=== PATIENT | male | born 1965 | race Caucasian/White ===

== ENCOUNTER 2021-08-20 13:09 | Inpatient (IN) | payer BC ==
--- NOTE | 2021-08-20 13:25 | ED ---
General Adult HPI - General Chief complaint: Recheck/Abnormal Lab/Rx Stated complaint: CHF Time Seen by Provider: 08/20/21 13:10 Source: patient, RN/MD, EMS, RN notes reviewed Mode of arrival: EMS Limitations: no limitations - History of Present Illness Initial comments: 55-year-old male with a benign past medical history who was sent from [facility] for further evaluation treatment of congestive heart failure and a ejection fraction on echocardiogram a temper sent. He had been experiencing exertional dyspnea with some orthopnea over the past several weeks this has been getting worse he denies any chest pain fevers chills nausea vomiting sweats or other symptoms. He was initially treated with Lasix and other medication at that facility and was transferred here for further patient evaluation and treatment.. He currently denies any pain any other symptoms at this time. He is diuresing after the Lasix was administered. Patient does say he's had a small amount of peripheral edema to the lower extremities - Related Data Home Medications Medication Instructions Recorded Confirmed Aspirin EC [Ecotrin Low Dose] 81 mg PO DAILY 08/20/21 08/20/21 Hydrochlorothiazide 12.5 mg PO DAILY 08/20/21 08/20/21 [hydroCHLOROthiazide] Magnesium 200 mg PO DAILY 08/20/21 08/20/21 Allergies Allergy/AdvReac Type Severity Reaction Status Date / Time No Known Allergies Allergy Verified 08/20/21 14:07 Review of Systems ROS Statement: Those systems with pertinent positive or pertinent negative responses have been documented in the HPI. ROS Other: All systems not noted in ROS Statement are negative. Past Medical History Past Medical History: Heart Failure History of Any Multi-Drug Resistant Organisms: None Reported Past Surgical History: Orthopedic Surgery Past Psychological History: No Psychological Hx Reported Smoking Status: Never smoker Past Alcohol Use History: Occasional Past Drug Use History: None Reported General Exam - General Exam Comments Initial Comments: This is a well-developed well-nourished awake alert oriented 3 male Limitations: no limitations General appearance: alert, in no apparent distress Head exam: Present: atraumatic, normocephalic, normal inspection Eye exam: Present: normal appearance, PERRL, EOMI. Absent: scleral icterus, conjunctival injection, periorbital swelling ENT exam: Present: normal exam, mucous membranes moist Neck exam: Present: normal inspection, full ROM, other (7. Bruits). Absent: tenderness, meningismus, lymphadenopathy Respiratory exam: Present: decreased breath sounds. Absent: respiratory distress, wheezes, rales, rhonchi, stridor Cardiovascular Exam: Present: normal rhythm, tachycardia, normal heart sounds. Absent: systolic murmur, diastolic murmur, rubs, gallop, clicks GI/Abdominal exam: Present: soft, normal bowel sounds. Absent: distended, tenderness, guarding, rebound, rigid Extremities exam: Present: normal inspection, full ROM, normal capillary refill. Absent: tenderness, pedal edema, joint swelling, calf tenderness Back exam: Present: normal inspection Neurological exam: Present: alert, oriented X3, CN II-XII intact Psychiatric exam: Present: normal affect, normal mood Skin exam: Present: warm, dry, intact, normal color. Absent: rash Course Vital Signs 08/20/21 08/20/21 13:14 14:54 Temperature 97.7 F 98.1 F Pulse Rate 101 H 92 Respiratory 18 19 Rate Blood Pressure 148/121 139/110 O2 Sat by Pulse 98 97 Oximetry EKG Findings - EKG Results: EKG: interpreted by ERMD, sinus rhythm (Sinus rhythm rate 99. Interval 181 QRS 98 QT since QTC 380/436 nonspecific T-wave configuration this is compared with the EKG sent from the sending facility.) Medical Decision Making - Medical Decision Making I did review the materials presented from the sending facility patient does have evidence of CHF with low ejection fraction on echocardiogram. Patient will be admitted for cardiology consultation I did discuss the case with . Disposition Clinical Impression: CHF (congestive heart failure), Hypertension Disposition: ADMITTED IP TO THIS [facility] Condition: Stable Referrals: Nonstaff,Physician [Primary Care Provider] - 1-2 days
--- NOTE | 2021-08-20 15:26 | P.HPIM ---
History of Present Illness Chief Complaint: Shortness of Patient is a 55-year-old male with no significant past medical history the presence of a hospital complaining shortness of breath. This is probably started 3 weeks ago and has been progressively getting worse. Denies any proximal nocturnal dyspnea does use his arm or extrapleural extremities had times to alleviate some shortness of breath. Patient is unable to ambulate more than a block without getting shortness of breath. He denies any history of coronary disease, congestive heart failure however was diagnosed with essential hypertension in the past but not been taking any medications. He denies any episodes of fever, chills, nausea or vomiting. patient visited his PCP and obtained a 2-D echocardiogram that showed an ejection fraction of 10-15% and was instructed to visit the emergency department. During my examination his vital signs are stable not in any acute distress and is able to have a full conversation. No blood work available in our system however did review his previous records including CBC, BMP, BNP, chest x-ray and echocardiogram. Past Medical History Past Medical History: Heart Failure History of Any Multi-Drug Resistant Organisms: None Reported Past Surgical History: Orthopedic Surgery Past Psychological History: No Psychological Hx Reported Smoking Status: Never smoker Past Alcohol Use History: Occasional Past Drug Use History: None Reported Medications and Allergies Home Medications Medication Instructions Recorded Confirmed Type Aspirin EC [Ecotrin Low Dose] 81 mg PO DAILY 08/20/21 08/20/21 History Hydrochlorothiazide 12.5 mg PO DAILY 08/20/21 08/20/21 History [hydroCHLOROthiazide] Magnesium 200 mg PO DAILY 08/20/21 08/20/21 History Allergies Allergy/AdvReac Type Severity Reaction Status Date / Time No Known Allergies Allergy Verified 08/20/21 14:07 Physical Exam Vitals: Vital Signs Temp Pulse Resp BP Pulse Ox 08/20/21 14:54 98.1 F 92 19 139/110 97 08/20/21 13:14 97.7 F 101 H 18 148/121 98 Intake and Output 08/20/21 08/20/21 08/20/21 06:59 14:59 22:59 Other: Weight 143.789 kg General: Patient is awake alert oriented 3 Cardiology: Normal S1/S2 heard, no murmurs appreciated Respiratory: Bilateral crackles at the bases minimal Abdomen: Soft nontender Extremities: +2 pitting edema Psych: No acute distress Assessment and Plan Assessment: Assessment: #1 new onset congestive heart failure with reduced ejection fraction 10-15%, NYHA class III states he #2 essential hypertension Plan: -Admitted to medicine for close monitoring -Aspiration/fall precaution/hob30 -Low sodium diet, strict input/output, restrict fluid to less than 1.4 L within 24 hours -We'll initiate JAM inhibitor, beta any. Most likely a candidate for sprinolactone as well. -Needs evaluation by cardiology most likely cardiac cath to evaluate for coronary artery disease -We'll need LifeVest prior to discharge -Risk stratified patient with lipid profile, hemoglobin A1c and TSH reflex E4 -Blood pressure goal of less than 130/80 -DVT prophylaxis Lovenox 40 mg daily
[2021-08-20] MEDS ORDERED: FUROSEMIDE 40 MG TAB PO SCH (16:00)
[2021-08-20 16:32] LABS: Basophils # (A) 0.1 k/uL (0-0.2); Basophils % (A) 1 %; Eosinophils # (A) 0.4 k/uL (0-0.7); Eosinophils % (A) 5 %; HGB 15.3 gm/dL (13.0-17.5); Lymphocytes % (A) 21 %; MCH 29.7 pg (25.0-35.0); MCHC 32.6 g/dL (31.0-37.0); Mean Platelet Volume 7.9; Monocytes # (A) 0.4 k/uL (0-1.0); Monocytes % (A) 5 %; Neutrophils # (A) 6.4 k/uL (1.3-7.7); Neutrophils % (A) 69 %; Platelet Count 226 k/uL (150-450); RBC 5.16 m/uL (4.30-5.90); RDW 14.5 % (11.5-15.5); WBC 9.4 k/uL (3.8-10.6)
[2021-08-20] MEDS: HEPARIN SODIUM,PORCINE/PF 5,000 UNIT/0.5 ML SYRINGE SQ SCH ×2 (16:36→23:37)
[2021-08-20 16:40] LABS: African American GFR (CKD) >90 (>60 ml/min/1.73 sqM); Anion Gap 9 mmol/L; Blood Urea Nitrogen 21 mg/dL (9-20); Calcium 8.8 mg/dL (8.4-10.2); Carbon Dioxide 23 mmol/L (22-30); Chloride 104 mmol/L (98-107); Glucose 94 mg/dL (74-99); Non-African American GFR(CKD) 82 (>60 ml/min/1.73 sqM); Phosphorus 3.7 mg/dL (2.5-4.5); Potassium 4.3 mmol/L (3.5-5.1); Sodium 136 mmol/L (137-145)
[2021-08-20 17:20] LABS: Magnesium 2.5 mg/dL (1.6-2.3)
[2021-08-20] MEDS: FUROSEMIDE 10 MG/ML 4 ML VIAL IV SCH (21:36)
[2021-08-21] LABS: Chol/HDL Ratio 4.04 Ratio; LDL Cholesterol,Calculated 102.9 mg/dL (0.0-131.0)
[2021-08-21 08:00] LABS: Basophils # (A) 0.1 k/uL (0-0.2); Basophils % (A) 1 %; Eosinophils # (A) 0.3 k/uL (0-0.7); Eosinophils % (A) 3 %; HCT 47.8 % (39.0-53.0); HGB 15.2 gm/dL (13.0-17.5); Lymphocytes # (A) 1.7 k/uL (1.0-4.8); Lymphocytes % (A) 20 %; MCH 28.8 pg (25.0-35.0); MCHC 31.8 g/dL (31.0-37.0); MCV 90.8 fL (80.0-100.0); Mean Platelet Volume 8.5; Monocytes # (A) 0.4 k/uL (0-1.0); Monocytes % (A) 5 %; Neutrophils # (A) 5.8 k/uL (1.3-7.7); Neutrophils % (A) 70 %; Platelet Count 266 k/uL (150-450); RBC 5.26 m/uL (4.30-5.90); RDW 14.9 % (11.5-15.5); WBC 8.3 k/uL (3.8-10.6)
[2021-08-21 08:13] LABS: African American GFR (CKD) >90 (>60 ml/min/1.73 sqM); Anion Gap 8 mmol/L; Blood Urea Nitrogen 22 mg/dL (9-20); Calcium 8.7 mg/dL (8.4-10.2); Carbon Dioxide 25 mmol/L (22-30); Chloride 102 mmol/L (98-107); Glucose 93 mg/dL (74-99); Magnesium 2.5 mg/dL (1.6-2.3); Non-African American GFR(CKD) 80 (>60 ml/min/1.73 sqM); Sodium 135 mmol/L (137-145)
[2021-08-21 08:30] LABS: Potassium 4.3 mmol/L (3.5-5.1)
[2021-08-21] MEDS: HEPARIN SODIUM,PORCINE/PF 5,000 UNIT/0.5 ML SYRINGE SQ SCH ×3 (08:30→20:11)
[2021-08-21] MEDS: ATORVASTATIN 40 MG TAB PO SCH (08:30)
[2021-08-21] MEDS: ASPIRIN 81 MG PO SCH (08:30)
[2021-08-21] MEDS: FUROSEMIDE 10 MG/ML 4 ML VIAL IV SCH ×2 (08:30→20:11)
[2021-08-21] MEDS: MAGNESIUM OXIDE 400 MG TAB PO SCH (08:30)
[2021-08-21] MEDS ORDERED: hydroCHLOROthiazide 12.5 MG CAP PO SCH (09:00)
[2021-08-21] MEDS ORDERED: carvediloL 3.125 MG TAB PO SCH (09:00)
--- NOTE | 2021-08-21 10:45 | P.PN ---
Subjective Patient was examined at bedside today not complaining of any new symptomatology. He denies any active chest pain, worsening shortness of breath or palpitations. Objective - Vital Signs Vital signs: Vital Signs Temp 97.8 F 08/21/21 04:00 Pulse 67 08/21/21 04:00 Resp 18 08/21/21 04:00 BP 131/89 08/21/21 04:00 Pulse Ox 94 L 08/21/21 04:00 Intake & Output 08/20/21 08/21/21 08/21/21 18:59 06:59 18:59 Intake Total 10 Output Total 800 4325 Balance -800 -4315 Weight 143.789 kg 138.6 kg Intake: IV 10 0.9 10 Output: Urine 800 4325 Other: Voiding Method Toilet Urinal - Exam General: Patient is awake alert oriented 3 Cardiology: Normal S1/S2 heard, no murmurs appreciated Respiratory: No wheezing or rhonchi appreciated. minimal crackles, improving compared to yesterday. Abdomen: Soft nontender Extremities: +2 pitting edema - improving compared to yesterday Psych: No acute distress - Labs CBC & Chem 7: 08/21/21 07:02 08/21/21 07:02 Labs: Abnormal Lab Results - Last 24 Hours (Table) 08/20/21 08/20/21 08/21/21 Range/Units 16:22 16:22 07:02 Sodium 136 L 135 L (137-145) mmol/L BUN 21 H 22 H (9-20) mg/dL Hemoglobin A1c 6.3 H (0.0-6.0) % Magnesium 2.5 H 2.5 H (1.6-2.3) mg/dL Assessment and Plan Assessment: Assessment: #1 new onset congestive heart failure with reduced ejection fraction 10-15%, NYHA class III states he #2 essential hypertension #3 prediabetes #4 hyperlipidemia Plan: -Admitted to medicine for close monitoring -Aspiration/fall precaution/hob30 -Low sodium diet, strict input/output, restrict fluid to less than 1.4 L within 24 hours -We'll initiate JAM inhibitor, beta any. Most likely a candidate for sprinolactone as well. -Needs evaluation by cardiology most likely cardiac cath to evaluate for coronary artery disease -We'll need LifeVest prior to discharge -ASCVD score 11% we'll initiate high-intensity stuttering. -Blood pressure goal of less than 130/80 -DVT prophylaxis Lovenox 40 mg daily
[2021-08-21 10:48] VITALS: BMI 40.3
[2021-08-21] MEDS ORDERED: ALPRAZolam 0.25 MG TAB PO PRN (12:35)
[2021-08-21] MEDS ORDERED: ALPRAZolam 0.5 MG TAB PO PRN (12:35)
[2021-08-21] MEDS ORDERED: NITROGLYCERIN SL TABS 0.4 MG TAB SUBLINGUAL PRN (12:35)
--- NOTE | 2021-08-21 14:12 | P.CRDCN ---
History of Present Illness History of present illness: This is a 55 year old male with a past medical history of hypertention not on medication. 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 We have been consulted for congestive heart failure. Patient was transferred from [facility] for further evaluation treatment of congestive heart failure and a ejection fraction reported as <10%. He states that he initially presented to [place] on 08/19/2021 with symptoms of worsening exertional dyspnea with some orthopnea and lower extremity edema over the past several weeks. He states he has been having these symptoms for months and over the past 2-3 weeks it has been getting progressively worse. He usually performs his work, able to due daily activities without difficulty. However over the past couple days states he couldn't walk 12ft without being short of breath. On 08/19/2021, he states he underwent blood work, chest xray, discharged on hydrochlorothiazide and was discharged to undergo an outpatient Echocardiogram. He presented back to [place] on 08/20/2021 to undergo the echocardiogram and he was then transferred to [facility] due to the echocardiogram results. He denies history of CAD, WI, Stroke, Diabetes. He states he was diagnosed with hypertension after the but was not placed on any antihypertensives. He has a family history of his father having multiple WI's, first in his 50s. Mother has a history of a stroke. He using chewing tobacco. He does drink about 2 beers a day or whiskey and coke occasionally. He denies chest pain, nausea, vomiting, diaphoresis, palpitations, fever cough, chills. He was started on IV Lasix 40mg BID. DIAGNOSTICS EKG reveals sinus rhythm, heart rate 99, nonspecific T-wave abnormality, no significant ST-T wave abnormalities to suggest acute ischemia. No Prior EKG to review Telemetry tracings indicate sinus mechanism heart rate in the [id number] Laboratory reviewed, CBC unremarkable, troponin negative x1 here and negative at [place], proBNP 2820, sodium 135, potassium 4.3, BUN 22, sodium 11.0, magnesium 2.5, CBC unremarkable Echocardiogram report at [facility] revealed left ventricular systolic function severely impaired with an EF <20%, global hypokinesis of the left ventricle, severe diastolic dysfunction, mild to moderate pulmonary hypertension REVIEW OF SYSTEMS At the time of my exam: CONSTITUTIONAL: Denies fever or chills. CARDIOVASCULAR: Denies chest pain, shortness of breath, orthopnea, PND or palpitations. RESPIRATORY: Denies cough. GASTROINTESTINAL: Denies abdominal pain, diarrhea, constipation, nausea or vomiting. MUSCULOSKELETAL: Denies myalgias. NEUROLOGIC: Denies numbness, tingling, headache or weakness. ENDOCRINE: Denies fatigue, weight change, polydipsia or polyurina. GENITOURINARY: Denies burning, hematuria or urgency with micturation. HEMATOLOGIC: Denies history of anemia or bleeding. PHYSICAL EXAMINATION Blood pressure 124/76, heart rate 71, afebrile, oxygen saturations 95% on room air CONSTITUTIONAL: No apparent distress. HEENT: Head is normocephalic. Pupils are equal, round. Sclerae anicteric. Mucous membranes of the mouth are moist. No JVD. No carotid bruit. CHEST EXAMINATION: Lungs are clear to auscultation. No chest wall tenderness is noted on palpation or with deep breathing. HEART EXAMINATION: Regular rate and rhythm. S1, S2 heard. No murmurs, gallops or rub. ABDOMEN: Soft, nontender. Positive bowel sounds. EXTREMITIES: 2+ peripheral pulses, 1+bilatleral lower extremity edema and no calf tenderness. SKIN: warm, dry NEUROLOGIC EXAMINATION: Patient is awake, alert and oriented x3. ASSESSMENT Acute heart failure with reduced ejection fraction <20% History of hypertension Tobacco use Daily alcohol use PLAN -Continue IV Diuresis 40mg BID, monitor renal function and electrolytes, monitor I/Os and Daily weights -Increase lisinopril to 20mg daily -Continue aspirin, statin, carvedilol -We recommend cardiac catheterization for cardiomyopathy workup, patient is agreeable -I have discussed the risks, benefits and alternative therapies for the above- mentioned procedure and for both sedation/analgesia as well as necessary blood product administration, if indicated, as they pertain to this patient. The patient has indicated understanding and acceptance of the risks and procedures discussed. Questions have been answered appropriately and he is agreeable to move forward with the above-stated procedure. -Smoking and alcohol cessation discussed and highly recommended. -NPO after midnight. Nurse practitioner note has been reviewed by physician. Signing provider agrees with the documented findings, assessment, and plan of care. Past Medical History Past Medical History: Heart Failure History of Any Multi-Drug Resistant Organisms: None Reported Past Surgical History: Orthopedic Surgery Past Psychological History: No Psychological Hx Reported Smoking Status: Never smoker Past Alcohol Use History: Occasional Past Drug Use History: None Reported Medications and Allergies Home Medications Medication Instructions Recorded Confirmed Type Aspirin EC [Ecotrin Low Dose] 81 mg PO DAILY 08/20/21 08/20/21 History Magnesium 200 mg PO DAILY 08/20/21 08/20/21 History Allergies Allergy/AdvReac Type Severity Reaction Status Date / Time No Known Allergies Allergy Verified 08/20/21 14:07 Physical Exam Vitals: Vital Signs Temp Pulse Pulse Resp BP BP Pulse Ox 08/21/21 04:00 97.8 F 67 18 131/89 94 L 08/21/21 02:00 91 20 08/21/21 00:00 97.6 F 91 20 133/65 96 08/20/21 21:02 97.7 F 70 20 161/110 96 08/20/21 20:00 70 20 08/20/21 19:57 91 16 136/102 98 08/20/21 17:57 90 18 125/91 98 08/20/21 16:24 102 H 18 113/73 98 08/20/21 14:54 98.1 F 92 19 139/110 97 08/20/21 13:14 97.7 F 101 H 18 148/121 98 Intake and Output 08/20/21 08/21/21 08/21/21 22:59 06:59 14:59 Intake Total 10 Output Total 1700 3425 Balance -1700 -3415 Intake: IV 10 0.9 10 Output: Urine 1700 3425 Other: Voiding Method Toilet Toilet Urinal Urinal Weight 143.789 kg 138.6 kg Results 08/21/21 07:02 08/21/21 07:02 Cardiac Enzymes 08/20/21 Range/Units 14:56 Troponin I <0.012 (0.000-0.034) ng/mL Lipids 08/20/21 Range/Units 16:22 Triglycerides 114.00 (0.00-149.00) mg/dL Cholesterol 167.00 (0.00-200.00) mg/dL HDL Cholesterol 41.30 (40.00-60.00) mg/dL Cholesterol/HDL Ratio 4.04 Ratio CBC 08/20/21 08/21/21 Range/Units 16:22 07:02 WBC 9.4 8.3 (3.8-10.6) k/uL RBC 5.16 5.26 (4.30-5.90) m/uL Hgb 15.3 15.2 (13.0-17.5) gm/dL Hct 47.0 47.8 (39.0-53.0) % Plt Count 226 266 (150-450) k/uL Comprehensive Metabolic Panel 08/20/21 08/21/21 Range/Units 16:22 07:02 Sodium 136 L 135 L (137-145) mmol/L Potassium 4.3 4.3 (3.5-5.1) mmol/L Chloride 104 102 (98-107) mmol/L Carbon Dioxide 23 25 (22-30) mmol/L BUN 21 H 22 H (9-20) mg/dL Creatinine 1.02 1.04 (0.66-1.25) mg/dL Glucose 94 93 (74-99) mg/dL Calcium 8.8 8.7 (8.4-10.2) mg/dL Current Medications Generic Name Dose Route Start Last Admin Trade Name Freq PRN Reason Stop Dose Admin Aspirin 81 mg 08/21/21 09:00 08/21/21 08:30 Aspirin 81 Mg PO 81 mg DAILY SILVIO Administration Atorvastatin Calcium 40 mg 08/21/21 09:00 08/21/21 08:30 Atorvastatin 40 Mg Tab PO 40 mg DAILY SILVIO Administration Carvedilol 3.125 mg 08/21/21 09:00 08/21/21 08:30 Carvedilol 3.125 Mg Tab PO 3.125 mg DAILY SILVIO Administration Furosemide 40 mg 08/20/21 21:00 08/21/21 08:30 Furosemide 10 Mg/Ml 4 Ml Vial IV 40 mg Q12HR SILVIO Administration Heparin Sodium (Porcine) 5,000 unit 08/20/21 16:00 08/21/21 08:30 Heparin Sodium,Porcine/Pf 5,000 Unit/0.5 Ml Syringe SQ 5,000 unit Q8HR SILVIO Administration Lisinopril 2.5 mg 08/21/21 09:00 08/21/21 08:30 Lisinopril 2.5 Mg Tab PO 2.5 mg DAILY SILVIO Administration Magnesium Oxide 400 mg 08/21/21 09:00 08/21/21 08:30 Magnesium Oxide 400 Mg Tab PO 400 mg DAILY SILVIO Administration Intake and Output 08/20/21 08/21/21 08/21/21 22:59 06:59 14:59 Intake Total 10 Output Total 1700 3426 Balance -1704 -2702 Intake: IV 10 0.9 10 Output: Urine 1700 3422 Other: Voiding Method Toilet Toilet Urinal Urinal Weight 143.789 kg 138.6 kg 08/21/21 07:02 08/21/21 07:02
[2021-08-21] MEDS: carvediloL 3.125 MG TAB PO SCH (16:44)
[2021-08-21] MEDS: lisinopriL 20 MG TAB PO SCH (16:44)
[2021-08-22 05:06] LABS: Glucose,Whole Blood 103 mg/dL (75-99)
[2021-08-22] MEDS: ATORVASTATIN 40 MG TAB PO SCH (05:13)
[2021-08-22] MEDS: MAGNESIUM OXIDE 400 MG TAB PO SCH (05:13)
[2021-08-22] MEDS: HEPARIN SODIUM,PORCINE/PF 5,000 UNIT/0.5 ML SYRINGE SQ SCH ×3 (05:13→23:35)
[2021-08-22] MEDS: carvediloL 3.125 MG TAB PO SCH ×2 (05:14→17:14)
[2021-08-22] MEDS: ASPIRIN 81 MG PO SCH (05:14)
[2021-08-22] MEDS: SODIUM CHLORIDE 0.9% 1,000 ML in EMPTY BAG 1 BAG IV SCH ×3 (06:16→16:17)
[2021-08-22] MEDS ORDERED: HEPARIN SODIUM,PORCINE 10,000 UNIT in SODIUM CHLORIDE 0.9% 1,000 ML IRRIGATION PRN (07:00)
[2021-08-22] MEDS ORDERED: HEPARIN SODIUM,PORCINE 2,500 UNIT in SODIUM CHLORIDE 0.9% 250 ML IRRIGATION PRN (07:00)
[2021-08-22 07:48] LABS: Calcium 8.4 mg/dL (8.4-10.2); Potassium 4.4 mmol/L (3.5-5.1)
[2021-08-22 08:03] LABS: Basophils # (A) 0.1 k/uL (0-0.2); Basophils % (A) 1 %; Eosinophils # (A) 0.3 k/uL (0-0.7); Eosinophils % (A) 3 %; HCT 49.1 % (39.0-53.0); HGB 15.9 gm/dL (13.0-17.5); Lymphocytes # (A) 1.9 k/uL (1.0-4.8); Lymphocytes % (A) 22 %; MCH 29.8 pg (25.0-35.0); MCHC 32.4 g/dL (31.0-37.0); MCV 91.9 fL (80.0-100.0); Monocytes # (A) 0.6 k/uL (0-1.0); Monocytes % (A) 7 %; Neutrophils # (A) 5.5 k/uL (1.3-7.7); Neutrophils % (A) 65 %; Platelet Count 260 k/uL (150-450); RBC 5.35 m/uL (4.30-5.90); WBC 8.5 k/uL (3.8-10.6)
[2021-08-22] MEDS ORDERED: VERAPAMIL 2.5 MG/ML 2 ML AMP ONE (12:01)
[2021-08-22] MEDS ORDERED: LIDOCAINE 1% INJ 10MG/ML (20 ML MDV) ONE (12:01)
[2021-08-22] MEDS ORDERED: IV FLUID CONTINUATION 950 ML IV ONE (12:16)
[2021-08-22] MEDS ORDERED: fentaNYL (PF) 50 MCG/ML 2 ML AMP ONE (12:28)
[2021-08-22] MEDS: MIDAZOLAM 2 MG/2 ML VIAL IV ONE ×2 (12:48→12:52)
[2021-08-22] MEDS ORDERED: fentaNYL (PF) 50 MCG/ML 2 ML AMP IV ONE (12:50)
[2021-08-22] MEDS ORDERED: LIDOCAINE 1% INJ 10MG/ML (20 ML MDV) IV ONE (12:53)
[2021-08-22] MEDS ORDERED: VERAPAMIL SYRINGE (5 MG/10 ML) INTRAARTER ONE (12:59)
[2021-08-22] MEDS ORDERED: IOPAMIDOL-370 125ML BTL INJ ONE (13:06)
--- NOTE | 2021-08-22 14:09 | P.PN ---
Subjective Patient was examined at bedside not accompanying of any new symptomatology including chest pain, shortness of breath or palpitations. He has been taken down to cardiac cath. Case discussed with RN. Objective - Vital Signs Vital signs: Vital Signs Temp 98.1 F 08/22/21 11:55 Pulse 83 08/22/21 11:55 Resp 18 08/22/21 11:55 BP 107/75 08/22/21 11:55 Pulse Ox 95 08/22/21 11:55 Intake & Output 08/21/21 08/22/21 08/22/21 18:59 06:59 18:59 Intake Total 100 Output Total 1650 Balance -1650 100 Weight 138.6 kg 136.4 kg Intake: IV 100 Output: Urine 1650 Other: Voiding Method Toilet Toilet Toilet Urinal Urinal Urinal - Exam General: Patient is awake alert oriented 3 Cardiology: Normal S1/S2 heard, no murmurs appreciated Respiratory: No wheezing or rhonchi appreciated. minimal crackles, improving compared to yesterday. Abdomen: Soft nontender Extremities: +2 pitting edema - improving Psych: No acute distress - Labs CBC & Chem 7: 08/22/21 06:53 08/22/21 06:53 Labs: Abnormal Lab Results - Last 24 Hours (Table) 08/22/21 08/22/21 Range/Units 05:00 06:53 Sodium 135 L (137-145) mmol/L BUN 28 H (9-20) mg/dL Creatinine 1.30 H (0.66-1.25) mg/dL POC Glucose (mg/dL) 103 H (75-99) mg/dL Assessment and Plan Assessment: Assessment: #1 new onset congestive heart failure with reduced ejection fraction 10-15%, NYHA class III states he #2 essential hypertension #3 prediabetes #4 hyperlipidemia #5 acute kidney injury most likely cardiorenal Plan: -Admitted to medicine for close monitoring -Aspiration/fall precaution/hob30 -Low sodium diet, strict input/output, restrict fluid to less than 1.4 L within 24 hours -We'll initiate JAM inhibitor, beta any. Most likely a candidate for sprinolactone as well. -We'll obtain cardiac catheterization today. Further recommendations from cardiology -We'll need LifeVest prior to discharge -ASCVD score 11% we'll initiate high-intensity stuttering. -Blood pressure goal of less than 130/80 -Recommend starting normal saline 75 mL an hour after cardiac cath to event contrast-induced nephropathy. -DVT prophylaxis Lovenox 40 mg daily
[2021-08-22] MEDS: FUROSEMIDE 10 MG/ML 4 ML VIAL IV SCH ×2 (14:12→20:57)
[2021-08-22] MEDS: lisinopriL 20 MG TAB PO SCH (14:12)
--- NOTE | 2021-08-22 20:39 | P.CARDCATH ---
Description of Procedure: PROCEDURES PERFORMED: Left heart catheterization, bilateral coronary angiography INDICATION: Cardiomyopathy CONSENT:I have discussed the risks, benefits and alternative therapies for the above-mentioned procedure and for both sedation/analgesia as well as necessary blood product administration, if indicated, as they pertain to this patient. The patient has indicated understanding and acceptance of the risks and procedures discussed. PROCEDURE: After the risks, benefits and alternatives of the above mentioned procedure explained in detail with the patient, informed consent was obtained. Patient was taken to the catheterization lab and prepped and draped in usual fashion. 1% lidocaine was used to anesthetize the right radial artery. A 6- [place] sheath was placed in the right radial artery using modified Seldinger technique. Left coronary angiography was performed with a 5-[place] JL 3.5 catheter and right coronary angiography was performed with a 5-[place] JR5 catheter in various views. A 5-[place] FR5 catheter was inserted into the left ventricle and pressure measurements were obtained. The right radial sheath was removed and a TR band was placed with hemostasis achieved. The patient tolerated the procedure well. Patient was transported back to the post catheterization holding area in stable condition. Conscious Sedation: Patient was monitored under the direct supervision of vision of myself for conscious sedation using Versed and fentanyl for a total duration of [] minutes HEMODYNAMICS: Ao: 132/76 LV: 115/21, LVEDP 30mmHg SELECTIVE CORONARY ARTERIOGRAPHY: LEFT MAIN: The left main is a large caliber vessel which bifurcates into the LAD and circumflex. There is no significant stenosis. LEFT ANTERIOR DESCENDING CORONARY ARTERY: LAD is a large caliber vessel which wraps around to the apex. There are mild luminal irregularities of the LAD. LEFT CIRCUMFLEX CORONARY ARTERY: Left circumflex is a moderate caliber vessel without significant stenosis. RIGHT CORONARY ARTERY: The right coronary artery is a large caliber vessel which gives off a PDA and PLV branch and is the dominant vessel. There is a mid RCA 20-30% stenosis and otherwise is normal. FINAL IMPRESSION: 1. Mild CAD as described above including 20-30% RCA stenosis. 2. Elevated left sided filling pressures PLAN: 1. Aggressive risk factor modification per most recent ACC/AHA guidelines. 2. Continue diuresis with elevated left sided filling pressures. Optimize heart failure regimen as able.
[2021-08-23] MEDS: SODIUM CHLORIDE 0.9% 1,000 ML in EMPTY BAG 1 BAG IV SCH ×4 (00:22→17:05)
[2021-08-23] MEDS: carvediloL 3.125 MG TAB PO SCH ×2 (06:32→17:10)
[2021-08-23 08:28] LABS: Basophils # (A) 0.1 k/uL (0-0.2); Basophils % (A) 1 %; Eosinophils # (A) 0.3 k/uL (0-0.7); Eosinophils % (A) 4 %; HCT 50.7 % (39.0-53.0); HGB 16.1 gm/dL (13.0-17.5); Lymphocytes # (A) 1.9 k/uL (1.0-4.8); Lymphocytes % (A) 22 %; MCH 29.4 pg (25.0-35.0); MCHC 31.8 g/dL (31.0-37.0); MCV 92.5 fL (80.0-100.0); Mean Platelet Volume 7.8; Monocytes # (A) 0.5 k/uL (0-1.0); Monocytes % (A) 5 %; Neutrophils # (A) 5.7 k/uL (1.3-7.7); Neutrophils % (A) 67 %; Platelet Count 265 k/uL (150-450); RBC 5.49 m/uL (4.30-5.90); RDW 14.4 % (11.5-15.5); WBC 8.5 k/uL (3.8-10.6)
[2021-08-23 08:35] LABS: Calcium 8.8 mg/dL (8.4-10.2); Potassium 4.4 mmol/L (3.5-5.1)
[2021-08-23] MEDS ORDERED: lisinopriL 10 MG TAB PO SCH (09:00)
[2021-08-23] MEDS: ATORVASTATIN 40 MG TAB PO SCH (09:30)
[2021-08-23] MEDS: ASPIRIN 81 MG PO SCH (09:31)
[2021-08-23] MEDS: HEPARIN SODIUM,PORCINE/PF 5,000 UNIT/0.5 ML SYRINGE SQ SCH ×3 (09:31→23:15)
[2021-08-23] MEDS: FUROSEMIDE 10 MG/ML 4 ML VIAL IV SCH (09:31)
[2021-08-23] MEDS: MAGNESIUM OXIDE 400 MG TAB PO SCH (09:31)
--- NOTE | 2021-08-23 14:05 | P.PN ---
Subjective This is a 55 year old male with a past medical history of hypertention not on medication. 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 We have been consulted for congestive heart failure. Patient was transferred from [facility] for further evaluation treatment of congestive heart failure and a ejection fraction reported as <10%. He states that he initially presented to [facility] on 08/19/2021 with symptoms of worsening exertional dyspnea with some orthopnea and lower extremity edema over the past several weeks. He states he has been having these symptoms for months and over the past 2-3 weeks it has been getting progressively worse. He usually performs his work, able to due daily activities without difficulty. However over the past couple days states he couldn't walk 12ft without being short of breath. On 08/19/2021, he states he underwent blood work, chest xray, discharged on hydrochlorothiazide and was discharged to undergo an outpatient Echocardiogram. He presented back to [facility] on 08/20/2021 to undergo the echoca rdiogram and he was then transferred to [facility] due to the echocardiogram results. Echocardiogram report at [facility] revealed left ventricular systolic function severely impaired with an EF <20%, global hypokinesis of the left ventricle, severe diastolic dysfunction, mild to moderate pulmonary hypertension Patient underwent cardiac catheterization with Dr. Hernández which revealed mild CAD with 2030 percent RCA stenosis. Elevated left-sided filling pressures. 08/23/2021 Patient seen and examined at bedside, no acute distress. Denies any further chest pain or shortness of breath. He denies any orthopnea or PND. Vitals signs are stable He is currently maintained on aspirin 81 mg daily, atorvastatin 40 mg daily, carvedilol 3.125 mg twice a day, IV Lasix 40 mg twice a day, lisinopril 10 mg daily Labs, CBC unremarkable, sodium 133, potassium 4.4, BUN 26, serum creatinine 1.3 PHYSICAL EXAMINATION Vitals reviewed CONSTITUTIONAL: No apparent distress. HEENT: Neck Supple. No JVD. CHEST EXAMINATION: Lungs are clear to auscultation. No chest wall tenderness is noted on palpation or with deep breathing. HEART EXAMINATION: Regular rate and rhythm. S1, S2 heard. No murmurs, gallops or rub. ABDOMEN: Soft, nontender. Positive bowel sounds. EXTREMITIES: 2+ peripheral pulses, 1+bilatleral lower extremity edema and no calf tenderness. SKIN: Right radial cath site clean dry intact 2+ pulses no hematoma NEUROLOGIC EXAMINATION: Patient is awake, alert and oriented x3. ASSESSMENT Acute heart failure with reduced ejection fraction <20% History of hypertension Tobacco use Daily alcohol use PLAN -Transition to PO Lasix 40mg Daily -Continue lisinopril 10mg daily -Continue aspirin, statin, carvedilol -Smoking and alcohol cessation discussed and highly recommended. -From a cardiology perspective if patient remains asymptomatic and hemo dynamically stable, ok to discharge home today and follow up outpatient with Dr. Hernández Nurse practitioner note has been reviewed by physician. Signing provider agrees with the documented findings, assessment, and plan of care. Objective - Vital Signs Vital signs: Vital Signs Temp 98.2 F 08/23/21 11:53 Pulse 89 08/23/21 11:53 Resp 18 08/23/21 11:53 BP 116/85 08/23/21 11:53 Pulse Ox 94 L 08/23/21 11:53 Intake & Output 08/22/21 08/23/21 08/23/21 18:59 06:59 18:59 Intake Total 280 420 Output Total 2200 Balance 280 -2200 420 Weight 135.8 kg Intake: IV 100 Oral 180 420 Output: Urine 2200 Other: Voiding Method Toilet Toilet Toilet Urinal Urinal Urinal - Labs CBC & Chem 7: 08/23/21 07:41 08/23/21 07:41 Labs: Abnormal Lab Results - Last 24 Hours (Table) 08/23/21 Range/Units 07:41 Sodium 133 L (137-145) mmol/L BUN 26 H (9-20) mg/dL Creatinine 1.30 H (0.66-1.25) mg/dL Glucose 152 H (74-99) mg/dL
--- NOTE | 2021-08-23 14:57 | P.PN ---
Subjective Patient was examined at bedside today not complaining of any new symptomatology. He denies any active chest pain, shortness of breath or palpitations. Objective - Vital Signs Vital signs: Vital Signs Temp 98.2 F 08/23/21 11:53 Pulse 89 08/23/21 14:00 Resp 18 08/23/21 14:00 BP 116/85 08/23/21 11:53 Pulse Ox 94 L 08/23/21 11:53 Intake & Output 08/22/21 08/23/21 08/23/21 18:59 06:59 18:59 Intake Total 280 420 Output Total 2200 Balance 280 -2200 420 Weight 135.8 kg Intake: IV 100 Oral 180 420 Output: Urine 2200 Other: Voiding Method Toilet Toilet Toilet Urinal Urinal Urinal - Exam General: Patient is awake alert oriented 3 Cardiology: Normal S1/S2 heard, no murmurs appreciated Respiratory: No wheezing or rhonchi appreciated. no crackles Abdomen: Soft nontender Extremities: Minimal pitting edema Psych: No acute distress - Labs CBC & Chem 7: 08/23/21 07:41 08/23/21 07:41 Labs: Abnormal Lab Results - Last 24 Hours (Table) 08/23/21 Range/Units 07:41 Sodium 133 L (137-145) mmol/L BUN 26 H (9-20) mg/dL Creatinine 1.30 H (0.66-1.25) mg/dL Glucose 152 H (74-99) mg/dL Assessment and Plan Assessment: Assessment: #1 new onset congestive heart failure with reduced ejection fraction 10-15%, NYHA class III states he #2 acute kidney injury most likely related to contrast from cardiac cath versus cardiorenal #3 prediabetes #4 hyperlipidemia Plan: -Admitted to medicine for close monitoring -Aspiration/fall precaution/[id number] -More than 20-25% increase from baseline creatinine readapt we'll hold lisinopril and Lasix. -Provide gentle hydration most likely related to contrast-induced nephropathy. -Low sodium diet, strict input/output, restrict fluid to less than 1.4 L within 24 hours -Discussed indications for LifeVest not recommended by cardiology as this was nonischemic in nature. Patient will require a follow-up 2-D echocardiogram -ASCVD score 11% we'll initiate high-intensity stuttering. -Blood pressure goal of less than 130/80 -DVT prophylaxis Heparin TID
[2021-08-23] MEDS: SODIUM CHLORIDE 0.9% 1,000 ML IV SCH (17:10)
[2021-08-23 23:14] VITALS: RESP 18
[2021-08-24] MEDS: SODIUM CHLORIDE 0.9% 1,000 ML in EMPTY BAG 1 BAG IV SCH ×2 (04:55→08:20)
[2021-08-24] MEDS: SODIUM CHLORIDE 0.9% 1,000 ML IV SCH (04:56)
[2021-08-24] MEDS: carvediloL 3.125 MG TAB PO SCH (06:44)
[2021-08-24 08:20] VITALS: BP 117/74; PULSE 78; TEMP 97.9
[2021-08-24] MEDS: MAGNESIUM OXIDE 400 MG TAB PO SCH (08:20)
[2021-08-24] MEDS: ASPIRIN 81 MG PO SCH (08:20)
[2021-08-24] MEDS: ATORVASTATIN 40 MG TAB PO SCH (08:20)
[2021-08-24] MEDS: HEPARIN SODIUM,PORCINE/PF 5,000 UNIT/0.5 ML SYRINGE SQ SCH (08:20)
[2021-08-24] MEDS ORDERED: FUROSEMIDE 40 MG TAB PO SCH (09:00)
[2021-08-24 09:21] LABS: Calcium 8.7 mg/dL (8.4-10.2); Potassium 4.6 mmol/L (3.5-5.1)
--- NOTE | 2021-08-24 09:28 | P.DS ---
Providers Date of admission: 08/20/21 15:05 Expected date of discharge: 08/24/21 Attending physician: Hang Rose MD Consults: 08/20/21 15:03 Consult Physician Routine Consulting Provider: Eldon Porter Consult Reason/Comments: CHF Do you want consulting provider notified?: Yes Primary care physician: Physician Nonstaff Hospital Course: Patient is a 55-year-old male with no significant past medical history the presence of a hospital complaining shortness of breath. This is probably started 3 weeks ago and has been progressively getting worse. Denies any proximal nocturnal dyspnea does use his arm or extrapleural extremities had times to alleviate some shortness of breath. Patient is unable to ambulate more than a block without getting shortness of breath. He denies any history of coronary disease, congestive heart failure however was diagnosed with essential hypertension in the past but not been taking any medications. He denies any episodes of fever, chills, nausea or vomiting. patient visited his PCP and obtained a 2-D echocardiogram that showed an ejection fraction of 10-15% and was instructed to visit the emergency department. During my examination his vital signs are stable not in any acute distress and is able to have a full conversation. No blood work available in our system however did review his previous records including CBC, BMP, BNP, chest x-ray and echocardiogram. Patient was taken to cardiac catheterization by cardiology team no obstruction or stents were placed. Patient's heart failure most likely related to nonischemic cardiomyopathy. Patient at this time does not require LifeVest as per cardiology's recommendations. He will be optimized on aspirin, beta any, high-intensity statin, minimal Lasix to maintain euvolemic and will resume lisinopril at a low dose of 5 mg daily. Patient creatinine was elevated from baseline this is most likely contribution due to contrast-induced nephropathy which has normalized now. I've instructed the patient to follow up closely with his PCP by Thursday get a repeat chemistry to monitor for his creatinine. If there is an elevation of more than 20-25% of his baseline creati nine recommend changing to an alternative medication and avoiding nicolle inhibitors. He has been extensively counseled regarding follow-up appointments with his cardiology and his PCP by Thursday. I will also provide a prescription to get his repeat BMP completed cycle follow-up and tickles results to his primary care doctor. Patient Condition at Discharge: Stable Plan - Discharge Summary Discharge Rx Participant: No New Discharge Prescriptions: New carvediloL [Coreg] 3.125 mg PO BID-W/MEALS 30 Days #60 tab Lisinopril [Prinivil] 5 mg PO DAILY 30 Days #30 tab Atorvastatin [Lipitor] 40 mg PO DAILY 30 Days #30 tab Furosemide [Lasix] 20 mg PO DAILY 30 Days #30 tab Continue Magnesium 200 mg PO DAILY Aspirin EC [Ecotrin Low Dose] 81 mg PO DAILY Discontinued Hydrochlorothiazide [hydroCHLOROthiazide] 12.5 mg PO DAILY Discharge Medication List Aspirin EC [Ecotrin Low Dose] 81 mg PO DAILY 08/20/21 [History] Magnesium 200 mg PO DAILY 08/20/21 [History] Atorvastatin [Lipitor] 40 mg PO DAILY 30 Days #30 tab 08/23/21 [Rx] carvediloL [Coreg] 3.125 mg PO BID-W/MEALS 30 Days #60 tab 08/23/21 [Rx] Furosemide [Lasix] 20 mg PO DAILY 30 Days #30 tab 08/24/21 [Rx] Lisinopril [Prinivil] 5 mg PO DAILY 30 Days #30 tab 08/24/21 [Rx] Follow up Appointment(s)/Referral(s): Dami Hernández DO [STAFF PHYSICIAN] - 1 Week Nonstaff,Physician [Primary Care Provider] - 1-2 days ([facility]: Dr. Stanley Office closed Thu) Patient Instructions/Handouts: Heart Failure (DC), After Radial Heart Catheterization (GEN) Activity/Diet/Wound Care/Special Instructions: HEART HEALTHY DIET ACTIVITY TOLERATED Discharge/Stand Alone Forms: Work/Release Restrictions Form
--- NOTE | 2021-08-28 13:15 | CDI ---
Documentation Clarification Form Date: 08/28/2021 12:45:21 PM From: Calista Napier CCS, CCDS Admit Date: 08/20/2021 03:05:00 PM Patient Name: Jaron Chun Visit Number: [id number] Discharge Date: 08/24/2021 12:01:00 PM ATTENTION: The Clinical Documentation Specialists (CDI) and [facility] Coding Staff appreciate your assistance in clarifying documentation. Please respond to the clarification below the line at the bottom and electronically sign. The CDI & [facility] Coding staff will review the response and follow-up if needed. Please note: Queries are made part of the Legal Health Record. If you have any questions, please contact the author of this message via ITS. Dr. Hang Rose: Acute Kidney Injury most likely cardiorenal is documented in the 08/22 Attending Physician Progress Note. Per the 08/23 Attending Progress Note, the following is documented: Acute Kidney Injury most likely related to contrast from cardiac cath versus cardiorenal. Additional clarification is requested regarding the relationship, if any, that exists between the diagnosis and the procedure. Patients Admitting Diagnosis per the 08/20 ED Note: CHF, Hypertension Per the 08/20 H/P: New onset CHF w/reduced EF 10-15%, Essential Hypertension. Acute Kidney Injury is documented in the 08/22 & 08/23 Attending Progress Notes as noted above. Procedure Performed: 08/22: Left Heart Catheterization, Bilateral Coronary Angiogram Post-Operative Diagnosis per the 08/22 Heart Catheterization Note: Mild CAD including 20-30% Stenosis. Elevated left sided filling pressures. Postop Plan: Continue diuresis, optimize heart failure regimen. History/Risk Factors per the 08/20 ED note & the 08/20 H/P: Heart Failure Clinical Indicators: Presented to the ED on 08/20 via EMS as a transfer from [facility] for evaluation of CHF & EF on ECHO. Had exertional dyspnea with some orthopnea for several weeks. Initially treated with Lasix and transferred. Admit with CHF and Hypertension 08/20 LAB: Na 136, BUN 21, Creatinine 1.02 08/21 LAB: Na 135, BUN 22, Creatinine 1.04 08/22 LAB: Na 135, BUN 28, Creatine 1.30 08/23 LAB: Na 133, BUN 26, Creatinine 1.30 08/24 LAB: Na 135, BUN 26, Creatinine 1.16 Treatment 08/20: Cardiology Consult, po Lasix 40 mg q8H, IV Lasix 40 mg q12H, po Aspirin 08/22: Heart Cath, IV Heparin 250 mls/hr Irrigation x1, IV Versed 1 mg x1, IV Fentanyl 50 mcg x1, 4 ml Verapamil x1, IV Heparin 5,000 units x1, Isovue Injection 65 ml 08/23: IV Na Cl 1,000 mls @ 75 mls/hr q13H (not given), po Lasix 40 mg Daily Nephrology was not consulted. What relationship, if any, exists between the diagnosis of Acute Kidney Injury and the procedure: [y ] Acute Kidney Injury is a complication of surgical procedure [ ] Acute Kidney Injury is an expected outcome of the surgical procedure [ ] Acute Kidney Injury is related to patients co-morbid condition(s), please specify: & not a complication of the procedure [ ] Acute Kidney Injury is due to contrast given during heart catheter and is a complication of the procedure [ ] Acute Kidney Injury is not due to contrast given during heart catheter and is not a complication of the procedure [ ] Acute Kidney Injury has been ruled out [ ] Other, please specify: [ ] Unable to determine (Template Last Revised: September 2020) MTDD
== END 2021-08-24 12:01 | disposition home or self-care (01) | DRG 286 ==
LOC: EC 13:09 → 3SCARD 15:05
PROVIDERS: ADMIT Internal Medicine; ATTEND Internal Medicine
PROC: 4A023N7 Measurement of Cardiac Sampling and Pressure, Left Heart, Percutaneous Approach (ICD-10-PCS; principal; 2021-08-22 12:00)
PROC: B2111ZZ Fluoroscopy of Multiple Coronary Arteries using Low Osmolar Contrast (ICD-10-PCS; principal; 2021-08-22 12:00)
DX: I11.0 Hypertensive heart disease with heart failure (principal); I50.21 Acute systolic (congestive) heart failure; N17.9 Acute kidney failure, unspecified; I27.20 Pulmonary hypertension, unspecified; I42.8 Other cardiomyopathies; I25.10 Atherosclerotic heart disease of native coronary artery without angina pectoris; E78.5 Hyperlipidemia, unspecified; N14.1 Nephropathy induced by other drugs, medicaments and biological substances; T50.8X5A Adverse effect of diagnostic agents, initial encounter; R73.03 Prediabetes; F17.220 Nicotine dependence, chewing tobacco, uncomplicated; Z79.82 Long term (current) use of aspirin; Z79.899 Other long term (current) drug therapy; Z82.49 Family history of ischemic heart disease and other diseases of the circulatory system; Z82.3 Family history of stroke; Y92.230 Patient room in hospital as the place of occurrence of the external cause
CPT/HCPCS: 36415; 80048; 80061; 83036; 83735; 83880; 84100; 84443; 84484; 85025; 93005; 93458; 99285